=== PATIENT | male | born 1980 | race Caucasian/White ===

== ENCOUNTER 2016-11-25 16:14 | Emergency (ER) | payer MEDICARE, SELFPAY | END 2016-11-25 17:38 | disposition home or self-care (01) | LOC: ER1 16:14 | DX: N34.2 Other urethritis (principal) | CPT/HCPCS: 81001; 87086; 96372; 99283; J0696 ==

== ENCOUNTER 2017-03-05 17:50 | Emergency (ER) | payer MEDICARE, SELFPAY | END 2017-03-05 21:15 | disposition home or self-care (01) | LOC: ER1 17:50 | DX: S39.012A Strain of muscle, fascia and tendon of lower back, initial encounter (principal); R30.0 Dysuria; X58.XXXA Exposure to other specified factors, initial encounter | CPT/HCPCS: 81001; 87086; 99283 ==